=== PATIENT | male | born 1990 | race Caucasian/White ===

== ENCOUNTER 2017-09-30 06:21 | Day surgery (SDC) | payer OTHER ==
[~2017-09-30] VITALS: Ht 170.2 cm; Wt 90.7 kg
[2017-09-30] MEDS ORDERED: NS IV 1000 ML 1,000 ML IV ONE (06:35)
[2017-09-30] MEDS ORDERED: ONDANSETRON 4 MG/2 ML (SDV) Z0FRAN IVP ONE (06:45)
[2017-09-30] MEDS ORDERED: HYOSCYAMINE 0.125 MG (LEVSIN) TAB SL ONE (06:45)
[2017-09-30 06:53] LABS: BASOPHILS % (AUTO) 0 % (0-10); EOSINOPHILS # (AUTO) 0.1 10^3/uL (0.0-0.3); EOSINOPHILS % (AUTO) 0 % (0-10); HEMATOCRIT 42 % (40-54); HEMOGLOBIN 15.4 G/DL (13.3-17.7); LYMPHOCYTES # (AUTO) 2.6 X 10^3 (1.0-4.0); LYMPHOCYTES % (AUTO) 15 % (12-44); MEAN CORPUSCULAR HEMOGLOBIN 32 PG (25-34); MEAN CORPUSCULAR HGB CONC 36 G/DL (32-36); MEAN CORPUSCULAR VOLUME 88 FL (80-99); MEAN PLATELET VOLUME 9.9 FL (7.4-10.4); MONOCYTES # (AUTO) 1.6 X 10^3 (0.0-1.0); MONOCYTES % (AUTO) 9 % (0-12); NEUTROPHILS # (AUTO) 13.1 X 10^3 (1.8-7.8); NEUTROPHILS % (AUTO) 76 % (42-75); PLATELET COUNT 285 10^3/uL (130-400); RED BLOOD COUNT 4.81 10^6/uL (4.35-5.85); RED CELL DISTRIBUTION WIDTH 12.6 % (10.0-14.5); WHITE BLOOD COUNT 17.4 10^3/uL (4.3-11.0)
[2017-09-30 06:55] LABS: BILIRUBIN,URINE NEGATIVE (NEGATIVE); CLARITY,URINE CLEAR; COLOR,URINE YELLOW; GLUCOSE, URINE (UA) NEGATIVE (NEGATIVE); KETONES,URINE NEGATIVE (NEGATIVE); LEUKOCYTE ESTERASE ,URINE 1+ (NEGATIVE); NITRITE,URINE NEGATIVE (NEGATIVE); PH,URINE 5 (5-9); PROTEIN,URINE NEGATIVE (NEGATIVE); UROBILINOGEN,URINE NORMAL (NORMAL)
--- NOTE | 2017-09-30 06:57 | ED Abdominal Pain ---
General Chief Complaint: Abdominal/GI Problems Stated Complaint: ABD PAIN Nursing Triage Note: abdominal, testicular pain Sepsis Screen: No Definite Risk Source of Information: Patient Exam Limitations: No Limitations History of Present Illness Date Seen by Provider: Sep 30, 2017 Time Seen by Provider: 06:28 Initial Comments This 27-year-old gentleman presents to the emergency room with complaints of central abdominal pain that woke him around 03:00. It is worst in the periumbilical area but seems to be fairly generalized. He also reports the pain radiates to the testes bilaterally. He has been dry heaving without producing any emesis. His last bowel movement was one hour ago and was diarrhea. His last solid food was 23:00. He had some water and coffee around 04:30. He has been taking Tums without benefit. Pain is worse when lying flat Allergies and Home Medications Allergies Coded Allergies: No Known Drug Allergies (Unverified , 09/30/17) Home Medications Hydrocodone/Acetaminophen 1 Each Tablet, 1 TAB PO Q6H Prescribed by: BANDAR SWANSON on 09/30/17 1140 Patient Home Medication List Home Medication List Reviewed: Yes Review of Systems Constitutional: no symptoms reported; No chills, No fever EENTM: No Symptoms Reported Respiratory: No Symptoms Reported Cardiovascular: No Symptoms Reported Gastrointestinal: See HPI Genitourinary: See HPI Musculoskeletal: no symptoms reported Skin: no symptoms reported Psychiatric/Neurological: No Symptoms Reported Endocrine: No Symptoms Reported Hematologic/Lymphatic: No Symptoms Reported Past Dpmpiix-Vyeaxj-Ukwrpb Hx Patient Social History Alcohol Use: Denies Use Recreational Drug Use: No Smoking Status: Current Everyday Smoker Type Used: Cigarettes 2nd Hand Smoke Exposure: Yes Recent Foreign Travel: No Contact w/Someone Who Travel: No Recent Infectious Disease Expo: No Recent Hopitalizations: No Immunizations Up To Date Tetanus Booster (TDap): Unknown Seasonal Allergies Seasonal Allergies: No Past Medical History Surgeries: Yes Tonsillectomy Respiratory: No Cardiac: No Neurological: No Genitourinary: No Gastrointestinal: No Musculoskeletal: No Endocrine: No HEENT: No Cancer: No Psychosocial: No Integumentary: No Blood Disorders: No Family Medical History Hypertension Physical Exam Vital Signs Vital Signs - First Documented 09/30/17 06:25 Temp 96.2 Pulse 79 Resp 18 B/P (MAP) 149/115 (126) Pulse Ox 98 O2 Delivery Room Air Capillary Refill : Less Than 3 Seconds General Appearance: WD/WN, no apparent distress HEENT: PERRL/EOMI, normal ENT inspection, pharynx normal Neck: normal inspection Respiratory: lungs clear, normal breath sounds, no respiratory distress, no accessory muscle use Cardiovascular: regular rate, rhythm, no edema, no murmur Gastrointestinal: normal bowel sounds, soft; No distended, No guarding, No rebound; tenderness (generalized, right greater than left); No mass Extremities: normal inspection, no pedal edema Neurologic/Psychiatric: brick shader II-XII nml as tested, no motor/sensory deficits, alert, normal mood/affect, oriented x 3 Skin: normal color, warm/dry Progress/Results/Core Measures Lab Results Laboratory Tests Test 09/30/17 06:45 Range/Units White Blood Count 17.4 H 4.3-11.0 10^3/uL Red Blood Count 4.81 4.35-5.85 10^6/uL Hemoglobin 15.4 13.3-17.7 G/DL Hematocrit 42 40-54 % Mean Corpuscular Volume 88 80-99 FL Mean Corpuscular Hemoglobin 32 25-34 PG Mean Corpuscular Hemoglobin Concent 36 32-36 G/DL Red Cell Distribution Width 12.6 10.0-14.5 % Platelet Count 285 130-400 10^3/uL Mean Platelet Volume 9.9 7.4-10.4 FL Neutrophils (%) (Auto) 76 H 42-75 % Lymphocytes (%) (Auto) 15 12-44 % Monocytes (%) (Auto) 9 0-12 % Eosinophils (%) (Auto) 0 0-10 % Basophils (%) (Auto) 0 0-10 % Neutrophils # (Auto) 13.1 H 1.8-7.8 X 10^3 Lymphocytes # (Auto) 2.6 1.0-4.0 X 10^3 Monocytes # (Auto) 1.6 H 0.0-1.0 X 10^3 Eosinophils # (Auto) 0.1 0.0-0.3 10^3/uL Basophils # (Auto) 0.0 0.0-0.1 10^3/uL Neutrophils % (Manual) 80 % Lymphocytes % (Manual) 15 % Monocytes % (Manual) 1 % Eosinophils % (Manual) 0 % Basophils % (Manual) 0 % Band Neutrophils 4 % Blood Morphology Comment NORMAL Urine Color YELLOW Urine Clarity CLEAR Urine pH 5 5-9 Urine Specific [place] 1.025 H 1.016-1.022 Urine Protein NEGATIVE NEGATIVE Urine Glucose (UA) NEGATIVE NEGATIVE Urine Ketones NEGATIVE NEGATIVE Urine Nitrite NEGATIVE NEGATIVE Urine Bilirubin NEGATIVE NEGATIVE Urine Urobilinogen NORMAL NORMAL MG/DL Urine Leukocyte Esterase 1+ H NEGATIVE Urine RBC (Auto) 1+ H NEGATIVE Urine RBC RARE /HPF Urine WBC 0-2 /HPF Urine Crystals NONE /LPF Urine Bacteria TRACE /HPF Urine Casts NONE /LPF Urine Mucus NEGATIVE /LPF Urine Culture Indicated NO Sodium Level 139 135-145 MMOL/L Potassium Level 3.5 L 3.6-5.0 MMOL/L Chloride Level 103 98-107 MMOL/L Carbon Dioxide Level 25 21-32 MMOL/L Anion Gap 11 5-14 MMOL/L Blood Urea Nitrogen 10 7-18 MG/DL Creatinine 1.21 0.60-1.30 MG/DL Estimat Glomerular Filtration Rate > 60 BUN/Creatinine Ratio 8 Glucose Level 114 H 70-105 MG/DL Calcium Level 9.7 8.5-10.1 MG/DL Total Bilirubin 0.3 0.1-1.0 MG/DL Aspartate Amino Transf (AST/SGOT) 25 5-34 U/L Alanine Aminotransferase (ALT/SGPT) 41 0-55 U/L Alkaline Phosphatase 56 40-136 U/L Total Protein 7.5 6.4-8.2 GM/DL Albumin 4.4 3.2-4.5 GM/DL Lipase 37 8-78 U/L My Orders Orders - JENNIE CASTANEDA MD Ua Culture If Indicated (09/30/17 06:28) Cbc With Automated Diff (09/30/17 06:35) Comprehensive Metabolic Panel (09/30/17 06:35) Lipase (09/30/17 06:35) Saline Lock/Iv-Start (09/30/17 06:35) Ns Iv 1000 Ml (Sodium Chloride 0.9%) (09/30/17 06:35) Ondansetron Injection (Zofran Injectio (09/30/17 06:45) Hyoscyamine Sl Tablet (Levsin Sl Tablet) (09/30/17 06:45) Manual Differential (09/30/17 06:45) Fentanyl Injection (Sublimaze Injection (09/30/17 07:15) Ct Abdomen/Pelvis W (09/30/17 07:22) Iohexol Injection (Omnipaque 350 Mg/Ml 1 (09/30/17 07:30) Ns (Ivpb) (Sodium Chloride 0.9%) (09/30/17 07:30) Morphine Injection (Morphine Injection (09/30/17 08:00) Hydromorphone Injection (Dilaudid Inject (09/30/17 08:50) Medications Given in ED Current Medications Medications Dose Ordered Sig/Murali Route Start Time Stop Time Status Last Admin Dose Admin Fentanyl Citrate 75 mcg ONCE ONCE IVP 09/30/17 07:15 09/30/17 07:16 DC 09/30/17 07:12 75 MCG Hyoscyamine Sulfate 0.25 mg ONCE ONCE SL 09/30/17 06:45 09/30/17 06:46 DC 09/30/17 06:43 0.25 MG Iohexol 100 ml ONCE ONCE IV 09/30/17 07:30 09/30/17 07:31 DC 09/30/17 07:38 100 ML Morphine Sulfate 5 mg ONCE ONCE IVP 09/30/17 08:00 09/30/17 08:01 DC 09/30/17 07:59 5 MG Ondansetron HCl 8 mg ONCE ONCE IVP 09/30/17 06:45 09/30/17 06:46 DC 09/30/17 06:43 8 MG Sodium Chloride 80 ml ONCE ONCE IV 09/30/17 07:30 09/30/17 07:31 DC 09/30/17 07:38 80 ML Sodium Chloride 1,000 ml @ 0 mls/hr Q0M ONCE IV 09/30/17 06:35 09/30/17 06:37 DC 09/30/17 06:44 0 MLS/HR Vital Signs/I&O 09/30/17 09/30/17 06:25 09:35 Temp 96.2 Pulse 79 75 Resp 18 18 B/P (MAP) 149/115 (126) 135/91 Pulse Ox 98 95 O2 Delivery Room Air Room Air Blood Pressure Mean: 126 Progress Note #1: Time: 06:56 Progress Note Patient seen and examined. Labs pending. IV fluids ordered along with Zofran and Levsin. Progress Note #2: Time: 07:12 Progress Note Pain seems to be intensifying despite Levsin and Zofran. Patient has notable leukocytosis. Imaging is anticipated. Once UA is received imaging modality will be selected. Fentanyl 75 g IV has been ordered. Progress Note #3: Time: 08:20 Progress Note Patient's pain has improved with morphine. Acute appendicitis was identified on CT scan. Dr. Swanson has been notified and will see the patient in the ER shortly. Progress Note #4: Time: 08:[address] Swanson has seen and assessed patient. Consent signed for laparoscopic appendectomy. Patient is requesting more pain medication. Dilaudid 1 mg IV has been ordered. Diagonstic Imaging: CT Plain Films/CT/US/NM/MRI: abdomen, pelvis Comments CT abdomen and pelvis viewed by me and report reviewed. See report below: NAME: ESAU COFFEY [facility] REC#: [id number] PT STATUS: REG ER : 1990 PHYSICIAN: JENNIE CASTANEDA MD ADMIT DATE: 09/30/17/ER Draft Date of Exam:09/30/17 CT ABDOMEN/PELVIS W PROCEDURE: CT abdomen and pelvis with contrast. TECHNIQUE: Multiple contiguous axial images were obtained through the abdomen and pelvis after administration of intravenous contrast. INDICATION: Right-sided abdominal pain. COMPARISON: None available. FINDINGS: Lower chest: The lung bases are clear. No pericardial or pleural effusion. Peritoneum: No free intraperitoneal air or fluid. Liver and biliary system: The liver is normal. The gallbladder is normal. No biliary duct dilation. Spleen and Pancreas: Spleen is normal. The pancreas enhances normally without mass lesion or peripancreatic inflammatory changes. Adrenals: Normal. tract: The kidneys enhance normally without suspicious mass or obstruction. Urinary bladder is distended without wall thickening. Prostate is not enlarged. GI tract: Stomach is normally distended with fluid and food debris and there is no wall thickening. No bowel obstruction. No pericolonic inflammatory changes. The appendix is mildly dilated measuring up to 8 mm and has mild wall thickening with minimal surrounding induration. Vasculature and Lymph nodes: Normal caliber aorta. No abdominal or pelvic lymphadenopathy. Musculoskeletal: No concerning osseous lesion. IMPRESSION: 1. Mild acute appendicitis. No perforation, abscess or bowel obstruction. Dictated on workstation # [id number] Dict: 09/30/17 0754 Trans: 09/30/17 0806 [facility] [id number] Interpreted by: YISSEL FONTANA MD Departure Communication (Admissions) Time/Spoke to Admitting Phy: 08:15 Dr. Swanson Impression Primary Impression: Acute appendicitis Qualified Codes: K35.2 - Acute appendicitis with generalized peritonitis Disposition: 09 ADMITTED INPATIENT Condition: Stable (ERASED) Admissions Decision to Admit Reason: Admit from ER (General) Decision to Admit/Date: Sep 30, 2017 Time/Decision to Admit Time: 08:10 Departure-Patient Inst. Referrals: NO,LOCAL PHYSICIAN (PCP/Family) Primary Care Physician Scripts Hydrocodone/Acetaminophen (Hydrocodon-Acetaminophn 10-325) 1 Each Tablet 1 TAB PO Q6H for PAIN, #20 TAB 0 Refills Prov: BANDAR SWANSON DO 09/30/17 JENNIE CASTANEDA MD Sep 30, 2017 06:57
[2017-09-30 07:12] LABS: ALANINE AMINOTRANSFERASE 41 U/L (0-55); ALBUMIN 4.4 GM/DL (3.2-4.5); ALKALINE PHOSPHATASE 56 U/L (40-136); BILIRUBIN,TOTAL 0.3 MG/DL (0.1-1.0); BUN/CREATININE RATIO 8; CALCIUM 9.7 MG/DL (8.5-10.1); CARBON DIOXIDE 25 MMOL/L (21-32); CHLORIDE 103 MMOL/L (98-107); CREATININE SERUM 1.21 MG/DL (0.60-1.30); GFR ESTIMATED > 60; GLUCOSE 114 MG/DL (70-105); LIPASE 37 U/L (8-78); POTASSIUM 3.5 MMOL/L (3.6-5.0); SODIUM 139 MMOL/L (135-145); TOTAL PROTEIN 7.5 GM/DL (6.4-8.2)
[2017-09-30] MEDS ORDERED: fentaNYL INJECTION 100 MCG/2 ML AMP IVP ONE (07:15)
[2017-09-30 07:17] LABS: BACTERIA,URINE TRACE /HPF; RBC,URINE RARE /HPF; WBC,URINE 0-2 /HPF
[2017-09-30 07:26] LABS: BAND NEUTROPHILS 4 %; BASOPHILS % (MANUAL) 0 %; EOSINOPHILS % (MANUAL) 0 %; LYMPHOCYTES % (MANUAL) 15 %; MONOCYTES % (MANUAL) 1 %; NEUTROPHILS % (MANUAL) 80 %; RBC MORPH NORMAL
[2017-09-30] MEDS ORDERED: NS 250 ML (IVPB) BAG IV ONE (07:30)
[2017-09-30] MEDS ORDERED: IOHEXOL 350 MG/ML 100 ML (OMNIPAQUE 350) VIAL IV ONE (07:30)
[2017-09-30] MEDS ORDERED: morphine INJ 10 MG/ML 1ML (SYR OR VIAL) IVP ONE (08:00)
--- NOTE | 2017-09-30 08:06 | Diagnostic Imaging Report ---
PROCEDURE: CT abdomen and pelvis with contrast. TECHNIQUE: Multiple contiguous axial images were obtained through the abdomen and pelvis after administration of intravenous contrast. INDICATION: Right-sided abdominal pain. COMPARISON: None available. FINDINGS: Lower chest: The lung bases are clear. No pericardial or pleural effusion. Peritoneum: No free intraperitoneal air or fluid. Liver and biliary system: The liver is normal. The gallbladder is normal. No biliary duct dilation. Spleen and Pancreas: Spleen is normal. The pancreas enhances normally without mass lesion or peripancreatic inflammatory changes. Adrenals: Normal. tract: The kidneys enhance normally without suspicious mass or obstruction. Urinary bladder is distended without wall thickening. Prostate is not enlarged. GI tract: Stomach is normally distended with fluid and food debris and there is no wall thickening. No bowel obstruction. No pericolonic inflammatory changes. The appendix is mildly dilated measuring up to 8 mm and has mild wall thickening with minimal surrounding induration. Vasculature and Lymph nodes: Normal caliber aorta. No abdominal or pelvic lymphadenopathy. Musculoskeletal: No concerning osseous lesion. IMPRESSION: 1. Mild acute appendicitis. No perforation, abscess or bowel obstruction. Dictated by: Dictated on workstation # [id number]
[2017-09-30] MEDS ORDERED: HYDROmorphone 2 MG/ML VIAL (DILAUDID) IVP STA (08:50)
--- NOTE | 2017-09-30 09:10 | History & Physical-Surgical ---
History of Present Illness History of Present Illness Reason for visit/HPI Surgery asked to consult regarding acute appendicitis. HPI per ED: This 27-year-old gentleman presents to the emergency room with complaints of central abdominal pain that woke him around 03:00. It is worst in the periumbilical area but seems to be fairly generalized. He also reports the pain radiates to the testes bilaterally. He has been dry heaving without producing any emesis. His last bowel movement was one hour ago and was diarrhea. His last solid food was 23:00. He had some water and coffee around 04:30. He has been taking Tums without benefit. Pain is worse when lying flat. When I spoke to pt he states that his pain is 5 out of 10 now, but only down because of pain meds (Fentanyl and Morphine). At its worst it was 9 out of 10. He has never had pain like this before. He states the pain is still around the umbilicus. Date of Admission Time Seen by Provider: 08:32 I consulted on this patient on 09/30/17 09:03 Attending Physician Admitting Physician No,Local Physician Consult Allergies and Home Medications Allergies Coded Allergies: No Known Drug Allergies (Unverified , 09/30/17) Home Medications No Active Prescriptions or Reported Meds Patient Home Medication List Home Medication List Reviewed: Yes Past Kvtxsnd-Gadxtn-Jkzngq Hx Patient Social History Alcohol Use: Denies Use Recreational Drug Use: No Smoking Status: Current Everyday Smoker Type Used: Cigarettes 2nd Hand Smoke Exposure: Yes Recent Foreign Travel: No Contact w/Someone Who Travel: No Recent Infectious Disease Expo: No Recent Hopitalizations: No Immunizations Up To Date Tetanus Booster (TDap): Unknown Seasonal Allergies Seasonal Allergies: No Surgeries History of Surgeries: Yes Surgeries: Tonsillectomy Respiratory History of Respiratory Disorde: No Cardiovascular History of Cardiac Disorders: No Neurological History of Neurological Disord: No Genitourinary History of Genitourinary Disor: No Gastrointestinal History of Gastrointestinal Di: No Musculoskeletal History of Musculoskeletal Dis: No Endocrine History of Endocrine Disorders: No HEENT History of HEENT Disorders: No Cancer History of Cancer: No Psychosocial History of Psychiatric Problem: No Integumentary History of Skin or Integumenta: No Blood Transfusions History of Blood Disorders: No Family Medical History Significant Family History: Hypertension (father) Constitutional: chills, fever, weakness EENTM: No blurred vision, No mouth pain, No epistaxis, No nose congestion, No throat swelling Respiratory: No cough, No dyspnea on exertion, No hemoptysis Cardiovascular: No chest pain, No edema, No palpitations Gastrointestinal: abdominal pain; No hematemesis, No melena Genitourinary: No dysuria, No frequency, No hematuria Musculoskeletal: No back pain, No joint pain, No joint swelling Skin: No change in color, No change in hair/nails Psychiatric/Neurological: Denies Anxiety, Denies Depressed, Denies Headache, Denies Seizure pt denies abnormal bleeding or bruising. pt denies heat or cold intolerance Physical Exam Vital Signs Vital Signs - First Documented 09/30/17 06:25 Temp 96.2 Pulse 79 Resp 18 B/P (MAP) 149/115 (126) Pulse Ox 98 O2 Delivery Room Air Capillary Refill : Less Than 3 Seconds General Appearance: WD/WN, Mild Distress Eyes: Bilateral Eye PERRL, Bilateral Eye EOMI HEENT: Pharynx Normal, Moist Mucous Membranes; No Pale Conjunctivae (L), No Pale Conjunctivae (R) Neck: Full Range of Motion, Normal Inspection, Non Tender, Supple Respiratory: Chest Non Tender, Lungs Clear, Normal Breath Sounds, No Accessory Muscle Use, No Respiratory Distress Cardiovascular: Regular Rate, Rhythm, No Edema, No Murmur Gastrointestinal: Normal Bowel Sounds, Soft; No Distended, No Guarding; Hernia (umbilical hernia), Tenderness (diffusely, more so around the umbilicus) Rectal: Deferred Back: No CVA Tenderness Extremity: Normal Capillary Refill, Normal Inspection, Normal Range of Motion, Non Tender Neurologic/Psychiatric: Alert, Oriented x3, No Motor/Sensory Deficits, Normal Mood/Affect, wound care physician II-XII Norm as Tested Skin: Normal Color, Warm/Dry Lymphatic: No Adenopathy (neck, axilla or groin) Data Review Labs Laboratory Tests 09/30/17 06:45: White Blood Count 17.4H, Red Blood Count 4.81, Hemoglobin 15.4, Hematocrit 42, Mean Corpuscular Volume 88, Mean Corpuscular Hemoglobin 32, Mean Corpuscular Hemoglobin Concent 36, Red Cell Distribution Width 12.6, Platelet Count 285, Mean Platelet Volume 9.9, Neutrophils (%) (Auto) 76H, Lymphocytes (%) (Auto) 15 , Monocytes (%) (Auto) 9, Eosinophils (%) (Auto) 0, Basophils (%) (Auto) 0, Neutrophils # (Auto) 13.1H, Lymphocytes # (Auto) 2.6, Monocytes # (Auto) 1.6H, Eosinophils # (Auto) 0.1, Basophils # (Auto) 0.0, Neutrophils % (Manual) 80, Lymphocytes % (Manual) 15, Monocytes % (Manual) 1, Eosinophils % (Manual) 0, Basophils % (Manual) 0, Band Neutrophils 4, Blood Morphology Comment NORMAL, Urine Color YELLOW, Urine Clarity CLEAR, Urine pH 5, Urine Specific [place] 1.025H, Urine Protein NEGATIVE, Urine Glucose (UA) NEGATIVE, Urine Ketones NEGATIVE, Urine Nitrite NEGATIVE, Urine Bilirubin NEGATIVE, Urine Urobilinogen NORMAL, Urine Leukocyte Esterase 1+H, Urine RBC (Auto) 1+H, Urine RBC RARE, Urine WBC 0-2, Urine Crystals NONE, Urine Bacteria TRACE, Urine Casts NONE, Urine Mucus NEGATIVE, Urine Culture Indicated NO, Sodium Level 139, Potassium Level 3.5L, Chloride Level 103, Carbon Dioxide Level 25, Anion Gap 11, Blood Urea Nitrogen 10, Creatinine 1.21, Estimat Glomerular Filtration Rate > 60, BUN/ Creatinine Ratio 8, Glucose Level 114H, Calcium Level 9.7, Total Bilirubin 0.3, Aspartate Amino Transf (AST/SGOT) 25, Alanine Aminotransferase (ALT/SGPT) 41, Alkaline Phosphatase 56, Total Protein 7.5, Albumin 4.4, Lipase 37 Assessment/Plan Assessment/Plan Admission Diagonsis Acute Appendicitis Admission Status: Observation Assessment/Plan Acute Appendicitis Pt will be admitted to same day with IVF, pain control and anti-emetics and will get consent. He has a 17k WBC and Radiologist called acute appendicitis on CT. Discussed with pt the surgery Laparoscopic Appendectomy, possible open. Risks and complications discussed; including but not limited to pain, bleeding, infection, scar and damage to bowel with possible need for further procedure. BANDAR SWANSON DO Sep 30, 2017 09:10
[2017-09-30] MEDS: LACTATED RINGERS 1,000 ML IV PRN ×2 (10:00→11:30)
[2017-09-30 10:05] VITALS: BP 142/92
[2017-09-30] MEDS ORDERED: SEVOFLURANE (ULTANE) 15 ML INHAL SOLN ONE ×3 (10:09→11:17)
[2017-09-30] MEDS ORDERED: MIDAZOLAM 2 MG/2 ML (VERSED) VIAL ONE (10:09)
[2017-09-30] MEDS ORDERED: ROCURONIUM 10 MG/ML 5 ML SYRINGE IV ONE (10:09)
[2017-09-30] MEDS ORDERED: proPOfol 200 MG/20 ML (DIPRIVAN) VIAL IV ONE (10:09)
[2017-09-30] MEDS ORDERED: ONDANSETRON 4 MG/2 ML (SDV) Z0FRAN ONE (10:09)
[2017-09-30] MEDS ORDERED: fentaNYL INJECTION 100 MCG/2 ML AMP ONE ×3 (10:09→11:19)
[2017-09-30] MEDS ORDERED: LIDOCAINE PF 2% 5 ML (XYLOCAINE) VIAL ONE (10:09)
[2017-09-30] MEDS ORDERED: DEXAMETHASONE 10 MG/ML (DECADRON) 1 ML VIAL ONE (10:09)
[2017-09-30] MEDS ORDERED: fentaNYL INJECTION 100 MCG/2 ML AMP IV ONE (10:15)
[2017-09-30] MEDS ORDERED: ceFAZolin 2 GM IV Premixed 50 ML ONE (10:51)
[2017-09-30] MEDS ORDERED: NEOSTIGMINE 1 MG/ML 5 ML SYRINGE ONE (10:52)
[2017-09-30] MEDS ORDERED: GLYCOPYRROLATE 0.2 MG/ML (ROBINUL) 2 ML VIAL ONE (10:52)
[2017-09-30] MEDS ORDERED: LIDOCAINE/EPI 1%-1:200,000 (XYLOCAINE) 10 ML VIAL ONE (10:57)
--- NOTE | 2017-09-30 11:39 | Progress Note-Post Operative ---
Post-Operative Progess Note Surgeon (s)/Assembler Crimper (s) Surgeon BANDAR SWANSON DO Assembler Crimper: none Pre-Operative Diagnosis Acute appy Post-Operative Diagnosis Same Procedure & Operative Findings Date of Procedure 09/30/17 Procedure Performed/Findings Lap appy Anesthesia Type GET Estimated Blood Loss Estimated blood loss (mL): scant Specimens/Packing Specimens Removed BANDAR Carpio DO Sep 30, 2017 11:39
[2017-09-30] MEDS ORDERED: HYDR-3820 PO (11:40)
--- NOTE | 2017-09-30 11:41 | Discharge Inst-Surgical ---
Discharge Inst-Surgical Depart Medication/Instructions New, Converted or Re-Newed RX: RX Given to Pt/Family Patient Instructions Follow up Appt: Make appointment for 1 week. Instructions: No lifting greater than 10 pounds. No strenuous activity. May shower in 24 hours, no tub bath or soaking. Use incentive spirometer at home as directed. No Smoking Skin/Wound Care: May remove bandages. You need to leave the Dermabond on over incision it will fall off on its own. Symptoms to Report: Appetite Changes, Extremity Discoloration, Numbness/Tingling, Swelling Increased , Bleeding Excessive, Eyesight Changes, Pain Increased, Urine Color Change, Constipation(Persistent), Fever over 101 degree F, Pain/Pressure in chest, Urinating Difficulty, Cough Up/Vomit Blood, Heart Beat Irreg/Pounding, Pain/ Pressure in jaw, Cramps in feet or legs, Lightheadedness, Pain/Pressure in shoulder, Diarrhea(Persistent), Memory Changes Suddenly, Questions/Concerns, Weight gain consecutive days, Dizziness/Fainting, Nausea/Vomiting, Shortness of Breath, Weight gain over 2 pounds If questions or concerns contact your physician Or seek help at emergency department. Activity Activity as Tolerated: Yes Activity Instructions: Avoid Stress to Incision Driving Instructions: No Driving/Refer to Diet Discharge Diet: No Restrictions Diet After 24 Hours: Clear Liquid if Nauseous If Any Problems/Questions/Issu: Contact Your Physician, Go to Emergency Room Skin/Wound Care Infection Signs and Symptoms: Increased Redness, Foul Odor of Wound, Increased Drainage, Skin Itchy or Has a Rash, Increased Swelling, Temperature Above 101 F Wound Care Comment: heating pad to neck or shoulder tonight for pain Stitches/Flora/Dermabond Dis: Dermabond Ice Pack: Ice On and Off Site BANDAR SWANSON DO Sep 30, 2017 11:41
--- NOTE | 2017-09-30 12:14 | Anesthesia-General Post-Op ---
General Patient Condition Mental Status/LOC: Same as Preop Cardiovascular: Satisfactory Nausea/Vomiting: Absent Respiratory: Satisfactory Pain: Controlled Complications: Absent Post Op Complications Complications None Follow Up Care/Instructions Patient Instructions None needed. Anesthesia/Patient Condition Patient Condition Patient is doing well, no complaints, stable vital signs, no apparent adverse anesthesia problems. No complications reported per nursing. D/C home per [facility] Criteria: No DARIO HAYNES CRNA Sep 30, 2017 12:13
[2017-09-30 12:50] VITALS: BP 132/85
[2017-09-30 13:20] VITALS: BP 134/72
[2017-09-30] MEDS ORDERED: HYDROcodone/APAP 10 MG/325 MG (LORTAB) TAB PO ONE ×2 (13:23→13:30)
[2017-09-30 13:50] VITALS: BP 136/87
[2017-09-30 14:20] VITALS: BP 136/87
--- NOTE | 2017-09-30 22:55 | OPERATIVE REPORT ---
DATE OF SERVICE: PREOPERATIVE DIAGNOSIS: Acute appendicitis. POSTOPERATIVE DIAGNOSIS: Acute appendicitis. PROCEDURE: Laparoscopic appendectomy. SURGEON: Dr. Gill. REAL ESTATE PROFESSIONAL: None. ANESTHESIA: General endotracheal tube. SPECIMEN: Appendix. BLOOD LOSS: Scant. FLUIDS: Per anesthesia. POSTOPERATIVE CONDITION: Stable. INDICATION FOR PROCEDURE: The patient is a 27-year-old male who came in with abdominal pain, elevated white count and a CAT scan read as acute appendicitis. FINDINGS: The patient had a dilated appendix. It looked erythematous, fibrinous material around it, but had not perforated. It definitely looked like an acute appendicitis. PROCEDURE NOTE: After informed consent was obtained, the patient was brought to the operating room, placed on table in supine position, sterilely prepped and draped in normal fashion. Local lidocaine was used to infiltrate the skin above the umbilicus, made incision with #11 blade, carried down through the skin into the subcutaneous tissue, then deepened down subcutaneous tissue with Bovie electrocautery down to fascia. Fascia incised with Bovie electrocautery and bluntly entered the abdomen, swept a finger around, placed a 0 Vicryl [id number] suture and then placed 11 mm trocar port under direct visualization. Created pneumoperitoneum and then placed 2 more ports in normal fashion using local lidocaine, 11 blade for stab incision and the VersaStep system, all done under direct visualization, one suprapubically and one in left lower quadrant. The patient was then placed slightly Trendelenburg and rotated left, able to visualize the appendix. It had some fibrinous material around it. There was no purulence therefore it was not perforated, but was definitely distended and a little bit erythematous. It looked like an acute appendicitis. Able to grasp the mesoappendix with a grasper and then come across the mesoappendix with the LigaSure in a stepwise fashion, clamping, coagulating and transecting and in this fashion completely freeing up the appendix, it was just attached to the cecum. Switched to a 5 mm camera, brought the Endo-ARIC into the abdomen through the supraumbilical incision. A port placed across the base of appendix, clamped and fired, thereby transecting the appendix, removed the Endo-ARIC, placed a bag in the abdomen, placed the appendix in the bag and removed through the supraumbilical incision. Placed the port back in the abdomen, copiously irrigated with normal saline, suctioned this out. There was no bleeding. No other signs of any abscess or obvious problems, but did not move any intestine and then placed the patient supine, removed all ports under direct visualization, allowed pneumoperitoneum of escape. Closed thy supraumbilical incision, closing the fascia with 0 Vicryl suture previously placed. Copiously irrigated all incisions with normal saline, closing the 2 small 5 mm incisions with a single interrupted 4-0 undyed Monocryl subcuticular stitch, closed the supraumbilical incision with 4 interrupted 4-0 undyed Monocryl subcuticular stitches. Area was cleaned and dried and Dermabond placed. The patient then transferred to recovery in stable condition. Sponge, instruments and needle counts were correct at the end of the case. Job ID: [id number] DocumentID: [id number] Dictated Date: 09/30/2017 12:25:52 Prototype Model Maker Date: 09/30/2017 22:54:27 Dictated By: DO ELIE MARTI
== END 2017-09-30 14:20 | disposition home or self-care (01) ==
LOC: ER 06:26 → SDC 09:35
PROVIDERS: ATTEND Surgery
DX: K35.80 Unspecified acute appendicitis (principal); F17.210 Nicotine dependence, cigarettes, uncomplicated
CPT/HCPCS: 36415; 74177; 80053; 81000; 83690; 85007; 85027; 87081; 88304; 94664; 96374; 96375